=== PATIENT | female | born 1970 | race Caucasian/White ===

== ENCOUNTER 2020-12-16 09:01 | Outpatient (CLI) | payer OTHER ==
[2020-12-16 16:36] LABS: #Basophils 0.1 thou/uL (0.0-0.2); #Eosinphils 0.7 thou/uL (0.0-0.7); #Monocytes 0.6 thou/uL (0.11-0.59); #Neutrophils 6.4 thou/uL (1.40-6.50); %Basophils 0.8 % (0.0-1.0); %Eosinophils 7.2 % (0.0-10.0); %Lymphocytes 20.7 % (21.0-51.0); %Monocytes 5.9 % (0.0-10.0); %Neutrophils 65.3 % (42.0-75.0); Mean Corpuscular HGB CONC 32.5 g/dL (32.0-36.0); Mean Corpuscular Hemoglobin 27.1 pg (27.0-31.0); Mean Corpuscular Volume 83.5 fL (78.0-98.0); Mean Platelet Volume 8.7 fL (7.4-10.4); Platelet Count 194 thou/uL (130-400); RBC Distribution Width 12.9 % (11.5-14.5); Red Blood Cell (RBC) Count 4.42 mill/uL (4.20-5.40); White Blood Cell (WBC) Count 9.7 thou/uL (4.8-10.8)
[2020-12-18 04:59] LABS: Albumin 4.3 g/dL (3.5-5.0)
[2020-12-18 05:00] LABS: Chloride 103 mmol/L (98-107); Sodium 139 mmol/L (136-145)
[2020-12-18 05:02] LABS: Globulin 3.3 g/dL (2.4-3.5); Glucose 131 mg/dL (70-105); Protein, Total 7.6 g/dL (6.0-8.3); Triglycerides 93 mg/dL (Less than 150)
[2020-12-18 05:03] LABS: Anion Gap 17 mmol/L (10-20); Carbon Dioxide 24 mmol/L (22-29)
[2020-12-18 05:04] LABS: Bilirubin, Total 0.5 mg/dL (0.2-1.2)
[2020-12-18 05:05] LABS: Alkaline Phosphatase 63 U/L (40-110); Calc. Creatinine Clearance 0 mL/min (70-130)
[2020-12-18 05:06] LABS: BUN (Urea Nitrogen) 21 mg/dL (7.0-18.7)
[2020-12-18 05:07] LABS: AST (SGOT) 20 U/L (5-34); Cardiac Risk 2.6 (Less than 4.5); Cholesterol 158 mg/dl (< 200 Desired); HDL Cholesterol 60 mg/dL (>60 Neg Risk); LDL Cholesterol, Calculated 79 mg/dL
[2020-12-18 05:08] LABS: ALT (SGPT) 19 U/L (8-55)
== END 2020-12-16 09:02 | disposition home or self-care (01) ==
LOC: BURLAB 09:01
PROVIDERS: ATTEND Family Medicine
DX: E78.2 Mixed hyperlipidemia (principal); E11.40 Type 2 diabetes mellitus with diabetic neuropathy, unspecified; Z79.899 Other long term (current) drug therapy
CPT/HCPCS: 36415; 80050; 80061